=== PATIENT | female | born 1945 | race Caucasian/White ===

== ENCOUNTER 2021-01-22 17:02 | Emergency (ER) | payer OTHER ==
[2021-01-22 18:02] LABS: HEMOGLOBIN 15.4 gm/dl (12.3-15.3); RED BLOOD COUNT 5.04 M/UL (4.00-5.10); WHITE BLOOD COUNT 11.3 K/UL (4.5-11.0)
[2021-01-22] MEDS ORDERED: MUCUS ER600 MG PO (21:07)
[2021-01-22] MEDS ORDERED: PULMICORT FLEX90 MCG INH (21:07)
[2021-01-22] MEDS ORDERED: OMNICEF 300 MG300 MG PO (21:07)
== END 2021-01-22 21:31 | disposition home or self-care (01) ==
LOC: ER1 17:02
PROVIDERS: Emergency Medicine
DX: J82.83 Eosinophilic asthma (principal); K21.9 Gastro-esophageal reflux disease without esophagitis; E03.9 Hypothyroidism, unspecified; Z88.0 Allergy status to penicillin; Z88.2 Allergy status to sulfonamides; Z20.822 Contact with and (suspected) exposure to COVID-19
CPT/HCPCS: 36600; 71045; 80053; 82550; 82553; 82803; 83874; 84484; 85025; 85379; 93005; 94640; 94664; 96374; 96375; 99285; J0696; J1100; J7050; Q9967; U0002